=== PATIENT | female | born 2000 | race African-American/Black ===

== ENCOUNTER 2018-07-08 15:02 | Emergency (ER) | payer OTHER ==
[~2018-07-08] VITALS: Ht 165.1 cm; Wt 79.4 kg
[2018-07-08] MEDS ORDERED: VENTOLIN HFA 1818 GM INH (16:00)
[2018-07-08 16:06] VITALS: BP 110/68
== END 2018-07-08 16:06 | disposition home or self-care (01) ==
LOC: M.ERS 15:02
DX: J06.9 Acute upper respiratory infection, unspecified (principal)

== ENCOUNTER 2018-07-24 13:55 | Emergency (ER) | payer OTHER ==
[~2018-07-24] VITALS: Ht 170.2 cm; Wt 83.9 kg
[~2018-07-24 13:55] MED LIST: VENTOLIN HFA 1818 GM INH
[2018-07-24 16:00] VITALS: BP 118/69
== END 2018-07-24 16:01 | disposition home or self-care (01) ==
LOC: M.ERS 13:55
DX: S06.0X0A Concussion without loss of consciousness, initial encounter (principal); F17.210 Nicotine dependence, cigarettes, uncomplicated; W22.8XXA Striking against or struck by other objects, initial encounter; Y93.89 Activity, other specified; Y92.89 Other specified places as the place of occurrence of the external cause; Y99.8 Other external cause status

== ENCOUNTER 2018-08-14 11:59 | Emergency (ER) | payer OTHER ==
[~2018-08-14] VITALS: Ht 165.1 cm; Wt 79.4 kg
[2018-08-14 12:08] VITALS: BP 137/87
== END 2018-08-14 12:37 | disposition home or self-care (01) ==
LOC: M.ERS 11:59
DX: B00.9 Herpesviral infection, unspecified (principal); F17.210 Nicotine dependence, cigarettes, uncomplicated

== ENCOUNTER 2018-10-10 22:58 | Emergency (ER) | payer OTHER ==
[~2018-10-10] VITALS: Ht 165.1 cm; Wt 79.4 kg
[2018-10-10] MEDS ORDERED: NOHOMEMEDICATIONS (23:12)
[2018-10-11] MEDS ORDERED: IBUPROFEN 800800 MG PO (00:30)
[2018-10-11 00:56] VITALS: BP 122/75
== END 2018-10-11 00:58 | disposition home or self-care (01) ==
LOC: M.ERS 22:58
DX: S60.221A Contusion of right hand, initial encounter (principal); S09.93XA Unspecified injury of face, initial encounter; F17.210 Nicotine dependence, cigarettes, uncomplicated; W18.39XA Other fall on same level, initial encounter; Y93.89 Activity, other specified; Y92.89 Other specified places as the place of occurrence of the external cause; Y99.8 Other external cause status